=== PATIENT | male | born 1980 ===

== ENCOUNTER 2018-02-23 17:17 | Emergency (ER) | payer OTHER ==
[2018-02-23 17:56] VITALS: BMI 36.1
[2018-02-23 17:58] VITALS: TEMP 98.3
[2018-02-23] MEDS ORDERED: Sodium Chloride 0.9% 1,000 ML IV ONE (18:57)
[2018-02-23 19:27] LABS: BASO # 0.1 K/uL (0.0-0.2); BASO % 1.1 % (0.0-2.0); EOS # 0.3 K/uL (0.0-0.7); EOS % 4.7 % (0.0-4.0); LYMPH % 45.9 % (20.0-40.0); MEAN CELL VOLUME 90.7 fL (80.0-94.0); MEAN CORPUSCULAR HEMOGLOBIN 31.4 pg (27.0-31.0); MEAN CORPUSCULAR HGB CONC 34.6 g/dL (33.0-37.0); MEAN PLATELET VOLUME 8.2 fL (7.2-11.7); MONO # 0.7 K/uL (0.0-0.8); MONO % 10.7 % (0.0-10.0); NEUT # 2.5 K/uL (1.8-7.0); NEUT % 37.6 % (50.0-75.0); NRBC % 0.1 % (0.0-2.0); RBC 4.44 Mil/uL (4.40-5.90); RED CELL DISTRIBUTION WIDTH 12.4 % (11.5-14.5); WHITE BLOOD COUNT 6.6 K/uL (4.8-10.8)
[2018-02-23 19:28] LABS: SQUAMOUS EPITHIAL < 1 /hpf (0-5); URINE BILIRUBIN NEGATIVE (NEGATIVE); URINE BLOOD NEGATIVE (NEGATIVE); URINE CLARITY Clear (Clear); URINE COLOR Yellow (YELLOW); URINE GLUCOSE (UA) NORMAL (Normal); URINE LEUKOCYTE ESTERASE NEG Leu/uL (Negative); URINE PROTEIN NEGATIVE (NEGATIVE)
[2018-02-23 19:44] LABS: ALB/GLOB RATIO 1.3 (1.0-2.1); ALBUMIN 4.6 g/dL (3.5-5.0); ALT/SGPT 23 U/L (21-72); AST/SGOT 59 U/L (17-59); BLOOD UREA NITROGEN 10 mg/dL (9-20); CALCIUM 9.4 mg/dl (8.6-10.4); GFR AFRICAN-AMERICAN > 60; GFR NON-AFRICAN AMERICAN > 60; LIPASE 314 U/L (23-300)
--- NOTE | 2018-02-23 19:53 | CT ---
EXAM: CT Abdomen and Pelvis Without Intravenous Contrast EXAM DATE/TIME: Exam ordered 02/23/2018 6:57 PM CLINICAL HISTORY: 37 years old, male; Pain; Abdominal pain; Flank; Left lower quadrant (llq); Additional info: Abd pain TECHNIQUE: Axial computed tomography images of the abdomen and pelvis without intravenous contrast. All CT scans at this facility use one or more dose reduction techniques, viz.: automated exposure control; ma/kV adjustment per patient size (including targeted exams where dose is matched to indication; i.e. head); or iterative reconstruction technique. Coronal and sagittal reformatted images were created and reviewed. COMPARISON: No relevant prior studies available. FINDINGS: Lung bases: Unremarkable. No mass. No consolidation. Mediastinum: There are small hiatal hernia. ABDOMEN: Liver: The liver measures 23 cm in craniocaudal span. Gallbladder and bile ducts: Unremarkable. No calcified stones. No ductal dilation. Pancreas: Unremarkable. No ductal dilation. Spleen: The spleen measures 13.5 cm in craniocaudal span. Adrenals: Unremarkable. No mass. Kidneys and ureters: Unremarkable. No obstructing stones. No hydronephrosis. Stomach and bowel: There are scattered colonic diverticula. No obstruction. No mucosal thickening.There is very faint stranding of the pericolonic fat surrounding a segment of descending colon in the region of several colonic diverticula. PELVIS: Appendix: No findings to suggest acute appendicitis. Bladder: Unremarkable. No stones. Reproductive: The prostate measures 3.1 by 4.5 x 4.5 cm. ABDOMEN and PELVIS: Intraperitoneal space: Unremarkable. No free air. No significant fluid collection. Bones/joints: Mild degenerative changes noted of the lumbar spine No acute fracture. No dislocation. Soft tissues: There is a 7 mm umbilical hernia containing fat. No evidence of strangulation Vasculature: Unremarkable. No abdominal aortic aneurysm. Lymph nodes: Unremarkable. No enlarged lymph nodes. IMPRESSION: 1. Very faint stranding of pericolonic fat surrounding a segment of descending colon in the region of several colonic diverticula may represent an early mild diverticulitis. No abscess. No perforation. 2. Hepatosplenomegaly. There is evidence of hepatic steatosis. 3. Small hiatal hernia. 4. Date 8 old year-old needs to BE redone out
--- NOTE | 2018-02-23 19:59 | C.PDOC ---
History Of Present Illness 37 year old male, whose PMHx includes Diabetes, presents to the ED for evaluation of left flank pain which has been intermittent for the past 5 days. Patient denies any association of symptoms with movement or exertional activities. Patient states he experienced gross hematuria and passed some blood clots today. Patient has been compliant with his Diabetes medication and has no blood sugar related complaints today. Patient denies previous history of similar symptoms as well as fever, chills, nausea, vomiting, dysuria. Time Seen by Provider: 02/23/18 18:51 Chief Complaint (Nursing): Male Genitourinary History Per: Patient History/Exam Limitations: no limitations Onset/Duration Of Symptoms: Days (5) Current Symptoms Are (Timing): Worse Quality Of Discomfort: "Pain" Associated Symptoms: Urinary Symptoms (gross hematuria ). denies: Fever, Chills , Nausea, Vomiting Additional History Per: Patient Past Medical History Reviewed: Historical Data, Nursing Documentation, Vital Signs Vital Signs: Last Vital Signs Temp 98.3 F 02/23/18 17:57 Pulse 104 H 02/23/18 17:57 Resp 20 02/23/18 17:57 BP 149/89 02/23/18 17:57 Pulse Ox 97 02/23/18 20:17 - Medical History PMH: Diabetes Denies: Chronic Kidney Disease Surgical History: Back Surgery - [facility] Procedures PERIRECTAL INCISION (12/23/14) Family History: States: Unknown Family Hx - Social History Hx Tobacco Use: No Hx Alcohol Use: Yes Hx Substance Use: No - Immunization History Hx Tetanus Toxoid Vaccination: No Hx Influenza Vaccination: No Hx Pneumococcal Vaccination: No Review Of Systems Constitutional: Negative for: Fever, Chills Gastrointestinal: Negative for: Nausea, Vomiting Genitourinary: Positive for: Hematuria. Negative for: Dysuria Musculoskeletal: Positive for: Other (left flank pain ) Physical Exam - Physical Exam Appears: Non-toxic, No Acute Distress Skin: Normal Color, Warm, Dry Head: Atraumatic, Normacephalic Eye(s): bilateral: Normal Inspection Oral Mucosa: Moist Neck: Supple Chest: Symmetrical, No Deformity, No Tenderness Cardiovascular: Rhythm Regular, No Murmur Respiratory: Normal Breath Sounds, No Rales, No Rhonchi, No Wheezing Gastrointestinal/Abdominal: Soft, No Tenderness, No Guarding, No Rebound Back: CVA Tenderness (left-sided ) Extremity: Normal ROM, Capillary Refill (less than 2 seconds ) Neurological/Psych: Oriented x3, Normal Speech, Normal Cognition Gait: Steady ED Course And Treatment - Laboratory Results Result Diagrams: 02/23/18 19:16 02/23/18 19:16 Lab Interpretation: No Acute Changes O2 Sat by Pulse Oximetry: 97 - CT Scan/US CT A/P Other Rad Studies (CT/US): Interpreted By Me, Read By Radiologist, Radiology Report Reviewed CT/US Interpretation: EXAM: CT Abdomen and Pelvis Without Intravenous Contrast. EXAM DATE/TIME: Exam ordered 02/23/2018 6:57 PM. CLINICAL HISTORY: 37 years old, male; Pain; Abdominal pain; Flank; Left lower quadrant (llq); Additional info: Abd pain. TECHNIQUE: Axial computed tomography images of the abdomen and pelvis without intravenous contrast. All CT. scans at this facility use one or more dose reduction techniques, viz.: automated exposure control;. ma/kV adjustment per patient size (including targeted exams where dose is matched to indication; i.e. head); or iterative reconstruction technique. Coronal and sagittal reformatted images were created and reviewed. COMPARISON: No relevant prior studies available. FINDINGS: Lung bases: Unremarkable. No mass. No consolidation. Mediastinum: There are small hiatal hernia. ABDOMEN: Liver: The liver measures 23 cm in craniocaudal span. Gallbladder and bile ducts: Unremarkable. No calcified stones. No ductal dilation. Pancreas: Unremarkable. No ductal dilation. Spleen: The spleen measures 13.5 cm in craniocaudal span. Adrenals: Unremarkable. No mass. Kidneys and ureters: Unremarkable. No obstructing stones. No hydronephrosis. Stomach and bowel: There are scattered colonic diverticula. No obstruction. No mucosal. thickening.There is very faint stranding of the pericolonic fat surrounding a segment of descending. colon in the region of several colonic diverticula. PELVIS: Appendix: No findings to suggest acute appendicitis. Bladder: Unremarkable. No stones. Reproductive: The prostate measures 3.1 by 4.5 x 4.5 cm. ABDOMEN and PELVIS: Intraperitoneal space: Unremarkable. No free air. No significant fluid collection. Bones/joints: Mild degenerative changes noted of the lumbar spine No acute fracture. No. dislocation. Soft tissues: There is a 7 mm umbilical hernia containing fat. No evidence of strangulation. Vasculature: Unremarkable. No abdominal aortic aneurysm. Lymph nodes: Unremarkable. No enlarged lymph nodes. IMPRESSION: 1. Very faint stranding of pericolonic fat surrounding a segment of descending colon in the region of. several colonic diverticula may represent an early mild diverticulitis. No abscess. No perforation. 2. Hepatosplenomegaly. There is evidence of hepatic steatosis. 3. Small hiatal hernia. Progress Note: Bloodwork, urinalysis, CT A/P ordered and reviewed. IV Fluids administered. Reevaluation Time: 20:18 Reassessment Condition: Improved (Patient comofrtable in ED) Disposition Counseled Patient/Family Regarding: Studies Performed, Diagnosis, Need For Followup, Rx Given - Disposition Referrals: Omayra Rainey [Staff Provider] - Disposition: HOME/ ROUTINE Disposition Time: 20:18 Condition: STABLE Prescriptions: Ciprofloxacin [Cipro] 1 tab PO BID #14 tab Instructions: Diverticulitis Forms: [employer] ([place] Islander) Print Language: VIETNAMESE - Clinical Impression Clinical Impression: Diverticulitis - Scribe Statement The provider has reviewed the documentation as recorded by the Scribe (Amanda Guzman) Provider Attestation: All medical record entries made by the Scribe were at my direction and personally dictated by me. I have reviewed the chart and agree that the record accurately reflects my personal performance of the history, physical exam, medical decision making, and the department course for this patient. I have also personally directed, reviewed, and agree with the discharge instructions and disposition.
[2018-02-23 20:30] VITALS: BP 150/84; PULSE 84; RESP 16; O2SAT 99
== END 2018-02-23 20:30 | disposition home or self-care (01) ==
LOC: C.ER 17:17
DX: K57.92 Diverticulitis of intestine, part unspecified, without perforation or abscess without bleeding (principal)
CPT/HCPCS: 74176; 80053; 81001; 83690; 85025; 96360; 99284; J7040

== ENCOUNTER 2019-01-05 23:58 | Inpatient (IN) | payer OTHER ==
[2019-01-05 23:58] VITALS: BMI 36.1
[2019-01-06 01:09] LABS: URINE BILIRUBIN NEGATIVE (NEGATIVE); URINE COLOR BROWN (YELLOW); URINE GLUCOSE (UA) 2+ mg/dL (Normal); URINE LEUKOCYTE ESTERASE NEG Leu/uL (Negative); URINE PROTEIN 2+ mg/dL (NEGATIVE); URINE UROBILINOGEN NORMAL mg/dL (0.2-1.0)
[2019-01-06 01:10] LABS: URINE BLOOD 3+ (NEGATIVE); URINE CLARITY Turbid (Clear)
--- NOTE | 2019-01-06 01:10 | C.PDOC ---
History Of Present Illness 38 year old male present complaining of problem when urinating. Patient states he passed blood slots earlier today and tonight has been unable to pass urine. Denies fever or chills. Patient has Hx of hematuria in the past with negative exam by urologist. Chief Complaint (Nursing): Male Genitourinary History Per: Patient History/Exam Limitations: no limitations Onset/Duration Of Symptoms: Hrs Current Symptoms Are (Timing): Still Present Quality Of Discomfort: Unable To Describe Associated Symptoms: Urinary Symptoms (Passing blood clots, retention). denies: Fever, Chills Recent travel outside of the [place]: No Past Medical History Reviewed: Historical Data, Nursing Documentation, Vital Signs Vital Signs: Last Vital Signs Temp 98.1 F 01/06/19 00:08 Pulse 138 H 01/06/19 00:08 Resp 16 01/06/19 00:08 BP 167/93 H 01/06/19 00:08 Pulse Ox 99 01/06/19 00:08 - Medical History PMH: Diabetes Denies: Chronic Kidney Disease Surgical History: Back Surgery (lower back) - [facility] Procedures PERIRECTAL INCISION (12/23/14) Family History: States: Unknown Family Hx - Social History Hx Tobacco Use: No Hx Alcohol Use: Yes Hx Substance Use: No - Immunization History Hx Tetanus Toxoid Vaccination: No Hx Influenza Vaccination: No Hx Pneumococcal Vaccination: No Review Of Systems Constitutional: Negative for: Fever, Chills Cardiovascular: Negative for: Chest Pain, Palpitations Respiratory: Negative for: Cough, Shortness of Breath Gastrointestinal: Negative for: Nausea, Vomiting Genitourinary: Positive for: Other (Retention, passing clots) Neurological: Negative for: Weakness, Numbness Physical Exam - Physical Exam Appears: Non-toxic Skin: Normal Color, Warm, Dry Head: Atraumatic, Normacephalic Eye(s): bilateral: Normal Inspection Oral Mucosa: Moist Chest: Symmetrical, No Tenderness Cardiovascular: Rhythm Regular Respiratory: Normal Breath Sounds, No Rales, No Rhonchi, No Wheezing Gastrointestinal/Abdominal: Soft, Tenderness (Hypogastric), Distention, No Guarding, No Rebound Back: No CVA Tenderness Neurological/Psych: Oriented x3, Normal Speech ED Course And Treatment - Laboratory Results Result Diagrams: 01/06/19 02:40 O2 Sat by Pulse Oximetry: 99 (Room air) Pulse Ox Interpretation: Normal Progress Note: Barerto catheter inserted with gross hematuria. Disposition Discussed With DrJer: Rigo Campo Doctor Will See Patient In The: Hospital Counseled Patient/Family Regarding: Diagnosis - Disposition Disposition: HOSPITALIZED Disposition Time: 03:17 Condition: STABLE Forms: [facility] (Citizen Of [place]) - POA Present On Arrival: None - Clinical Impression Clinical Impression: Gross hematuria - Scribe Statement The provider has reviewed the documentation as recorded by the Scribe Shon Gonzalez All medical record entries made by the Tessaibe were at my direction and personally dictated by me. I have reviewed the chart and agree that the record accurately reflects my personal performance of the history, physical exam, medical decision making, and the department course for this patient. I have also personally directed, reviewed, and agree with the discharge instructions and disposition.
--- NOTE | 2019-01-06 01:13 | C.PDOC ---
Chief Complaint (Nursing): Male Genitourinary Past Medical History Vital Signs: Last Vital Signs Temp 98.1 F 01/06/19 00:08 Pulse 138 H 01/06/19 00:08 Resp 16 01/06/19 00:08 BP 167/93 H 01/06/19 00:08 Pulse Ox 99 01/06/19 00:08 - Medical History PMH: Diabetes Denies: Chronic Kidney Disease Surgical History: Back Surgery (lower back) - [facility] Procedures PERIRECTAL INCISION (12/23/14) Family History: States: Unknown Family Hx - Social History Hx Tobacco Use: No Hx Alcohol Use: Yes Hx Substance Use: No - Immunization History Hx Tetanus Toxoid Vaccination: No Hx Influenza Vaccination: No Hx Pneumococcal Vaccination: No ED Course And Treatment O2 Sat by Pulse Oximetry: 99 Disposition - Disposition
[2019-01-06 02:45] LABS: BASO # 0.1 K/uL (0.0-0.2); BASO % 1.1 % (0.0-2.0); EOS # 0.1 K/uL (0.0-0.7); EOS % 0.8 % (0.0-4.0); HEMOGLOBIN 12.1 g/dL (12.0-18.0); LYMPH # 1.2 K/uL (1.0-4.3); LYMPH % 19.1 % (20.0-40.0); MEAN CELL VOLUME 93.4 fL (80.0-94.0); MEAN CORPUSCULAR HEMOGLOBIN 31.4 pg (27.0-31.0); MEAN CORPUSCULAR HGB CONC 33.6 g/dL (33.0-37.0); MEAN PLATELET VOLUME 8.3 fL (7.2-11.7); MONO # 0.6 K/uL (0.0-0.8); MONO % 8.5 % (0.0-10.0); NEUT # 4.6 K/uL (1.8-7.0); NEUT % 70.5 % (50.0-75.0); RBC 3.87 Mil/uL (4.40-5.90); RED CELL DISTRIBUTION WIDTH 12.9 % (11.5-14.5); WHITE BLOOD COUNT 6.5 K/uL (4.8-10.8)
[2019-01-06 03:00] LABS: INR 1.2; PROTHROMBIN TIME 12.6 SECONDS (9.7-12.2)
[2019-01-06 03:20] LABS: BLOOD UREA NITROGEN 7 mg/dL (9-20); GFR NON-AFRICAN AMERICAN > 60
[2019-01-06 03:21] LABS: CALCIUM 8.4 mg/dl (8.6-10.4)
[2019-01-06 03:22] LABS: ALB/GLOB RATIO 1.5 (1.0-2.1); ALBUMIN 4.5 g/dL (3.5-5.0); ALT/SGPT 66 U/L (21-72); AST/SGOT 121 U/L (17-59)
[2019-01-06] MEDS ORDERED: Glucagon Recombinant 1 mg Inj IM PRN (04:28)
[2019-01-06] MEDS ORDERED: Dextrose 50% SYRINGE Inj (50 ml) IV PRN (04:28)
--- NOTE | 2019-01-06 04:54 | CP.PCM.HP ---
<ElinorAlexander melol - Last Filed: 01/06/19 05:09> History of Present Illness - History of Present Illness History of Present Illness: PGY-1 History and Physical for Dr. Campo Patient is a 38 year old male with PMHx DM who presents complaining of hematuria which he has been having since Wednesday. Patient made an appointment with his urologist, Dr. Mireles and patient underwent cystoscopy. Patient states that following cystoscopy he was told that there was nothing abnormal and was sent home, He presents to ER as he has continued to have bright red blood in his urine with blood clots. Patient denies feverm flank pain, suprapubic pain. He has had some associated nausea and vomited once. PMHx: DM Surg Hx: I and D perirectal abscess 2014 All: NKA Medications: Metformin 500 mg BID Social: Denies tobacco or drug use. Drinks one half bottle of liquor daily. Family hx: Father - DM. Denies family hx CA. PMD: Dr. Chavez Present on Admission - Present on Admission Any Indicators Present on Admission: No Review of Systems - Constitutional Constitutional: absent: Fever, Weight Loss, Weakness - EENT Eyes: absent: Blurred Vision, Diplopia Nose/Mouth/Throat: absent: Nasal Congestion, Nasal Discharge - Cardiovascular Cardiovascular: absent: Chest Pain, Dyspnea, Palpitations - Respiratory Respiratory: absent: Cough, Dyspnea - Gastrointestinal Gastrointestinal: Nausea, Vomiting. absent: Abdominal Pain, Constipation, Diarrhea - Genitourinary Genitourinary: Difficulty Urinating, Dysuria, Hematuria, Urinary Hesitance, Voiding Freq/Small Amts. absent: Flank Pain, Pyuria, Urinary Incontinence, Urinary Frequency, Urinary Urgency, Hx Renal/Bladder Calculi - Musculoskeletal Musculoskeletal: absent: Back Pain, Neck Pain - Integumentary Integumentary: absent: Pruritus Additional comments: C/o mild skin erythema on adbomen x1 year. Non-pruritic. - Neurological Neurological: absent: Dizziness, Numbness, Tingling - Psychiatric Psychiatric: absent: Anxiety, Depression Past Patient History - Past Medical History & Family History Past Medical History?: No - Past Social History Smoking Status: Never Smoked - CARDIAC Hx Cardiac Disorders: No - PULMONARY Hx Respiratory Disorders: No - NEUROLOGICAL Hx Neurological Disorder: No - HEENT Hx HEENT Problems: No - RENAL Hx Chronic Kidney Disease: No - ENDOCRINE/METABOLIC Hx Endocrine Disorders: Yes Hx Diabetes Mellitus Type 2: Yes - HEMATOLOGICAL/ONCOLOGICAL Hx Blood Disorders: No - INTEGUMENTARY Hx Dermatological Problems: No - MUSCULOSKELETAL/RHEUMATOLOGICAL Hx Musculoskeletal Disorders: No Hx Falls: No - GASTROINTESTINAL Hx Gastrointestinal Disorders: No - GENITOURINARY/GYNECOLOGICAL Hx Genitourinary Disorders: No - PSYCHIATRIC Hx Substance Use: No - SURGICAL HISTORY Hx Surgeries: Yes - ANESTHESIA Hx Anesthesia: Yes Hx Anesthesia Reactions: No Hx Malignant Hyperthermia: No Meds Allergies/Adverse Reactions: Allergies Allergy/AdvReac Type Severity Reaction Status Date / Time No Known Allergies Allergy Verified 01/06/19 00:14 Physical Exam - Constitutional Appears: Non-toxic, No Acute Distress - Head Exam Head Exam: ATRAUMATIC, NORMOCEPHALIC - Eye Exam Eye Exam: EOMI, Normal appearance - ENT Exam ENT Exam: Mucous Membranes Moist - Respiratory Exam Respiratory Exam: Clear to Auscultation Bilateral. absent: Rales, Rhonchi, Wheezes - Cardiovascular Exam Cardiovascular Exam: Tachycardia, +S1, +S2 - GI/Abdominal Exam GI & Abdominal Exam: Normal Bowel Sounds, Soft. absent: Tenderness Additional comments: Central obesity, striae, slight redness/erythema - Extremities Exam Extremities exam: Negative for: pedal edema, tenderness - Neurological Exam Neurological exam: Alert, CN II-XII Intact, Oriented x3 - Psychiatric Exam Psychiatric exam: Normal Affect, Normal Mood - Skin Skin Exam: Dry, Intact Results - Vital Signs Recent Vital Signs: Last Vital Signs Temp 98.0 F 01/06/19 03:51 Pulse 89 01/06/19 03:51 Resp 20 01/06/19 03:51 BP 144/78 01/06/19 03:51 Pulse Ox 98 01/06/19 03:51 - Labs Result Diagrams: 01/06/19 02:40 01/06/19 02:40 Labs: Laboratory Results - last 24 hr 01/06/19 01/06/19 01/06/19 00:50 02:40 02:40 WBC 6.5 RBC 3.87 L Hgb 12.1 Hct 36.1 MCV 93.4 D MCH 31.4 H MCHC 33.6 RDW 12.9 Plt Count 151 MPV 8.3 Neut % (Auto) 70.5 Lymph % (Auto) 19.1 L [place] % (Auto) 8.5 Eos % (Auto) 0.8 Baso % (Auto) 1.1 Neut # (Auto) 4.6 Lymph # (Auto) 1.2 [place] # (Auto) 0.6 Eos # (Auto) 0.1 Baso # (Auto) 0.1 PT INR APTT Sodium 133 Potassium 3.4 L Chloride 96 L Carbon Dioxide 22 Anion Gap 18 BUN 7 L Creatinine 0.4 L Est GFR ( Amer) > 60 Est GFR (Non-Af Amer) > 60 Random Glucose 165 H D Calcium 8.4 L Total Bilirubin 0.9 AST 121 H D ALT 66 Alkaline Phosphatase 129 H D Total Protein 7.5 Albumin 4.5 Globulin 3.0 Albumin/Globulin Ratio 1.5 Urine Color Brown Urine Clarity Turbid Urine pH 6.0 Ur Specific [place] 1.014 Urine Protein 2+ H Urine Glucose (UA) 2+ H Urine Ketones Negative Urine Blood 3+ H Urine Nitrate Negative Urine Bilirubin Negative Urine Urobilinogen Normal Ur Leukocyte Esterase Neg Urine WBC (Auto) 319 H Urine RBC (Auto) 7448 H Blood Type Antibody Screen 01/06/19 01/06/19 02:40 02:40 WBC RBC Hgb Hct MCV MCH MCHC RDW Plt Count MPV Neut % (Auto) Lymph % (Auto) [place] % (Auto) Eos % (Auto) Baso % (Auto) Neut # (Auto) Lymph # (Auto) [place] # (Auto) Eos # (Auto) Baso # (Auto) PT 12.6 H INR 1.2 APTT 35 H Sodium Potassium Chloride Carbon Dioxide Anion Gap BUN Creatinine Est GFR ( Amer) Est GFR (Non-Af Amer) Random Glucose Calcium Total Bilirubin AST ALT Alkaline Phosphatase Total Protein Albumin Globulin Albumin/Globulin Ratio Urine Color Urine Clarity Urine pH Ur Specific [place] Urine Protein Urine Glucose (UA) Urine Ketones Urine Blood Urine Nitrate Urine Bilirubin Urine Urobilinogen Ur Leukocyte Esterase Urine WBC (Auto) Urine RBC (Auto) Blood Type A POSITIVE Antibody Screen Negative Assessment & Plan - Assessment and Plan (Free Text) Assessment: 38 year old male with PMHx DM presents with hematuria and dysuria Hematuria/Dysuria -CT abdomen/pelvis w/o contrast 01/06: Bilateral perinephric fat stranding. Possibly urinary tract infection or abnormal renal function. No evidence of urolithiasis or hydronephrosis. Please correlate with creatinine level and urinalysis. Findings were not present on prior exam. Mild diffuse thickening of the catheterized, underdistended bladder. Hepatomegaly with hepatic steatosis. -Urology consulted, Dr. Mireles - f/u recs --NPO for possible procedure --Day team please obtain cystoscopy report from procedure at [facility] -PT/PTT unremarkable -Barreto in place, draining bright red bloody urine Abx: -Rocephin 1gm IV daily ETOH abuse -Librium 25mg PO Q8 LAVERN -Ativan 0.5 mg IV prn DM -Metformin held while NPO -Accuchecks -Hypoglycemic protocol PPx -DVT ppx contraindicated 2/2 gross hematuria -NPO Assessment and plan discussed with Dr. Alber White, PGY-1 <Rigo Campo P - Last Filed: 01/06/19 07:26> Results - Vital Signs Recent Vital Signs: Last Vital Signs Temp 98.7 F 01/06/19 05:14 Pulse 99 H 01/06/19 05:14 Resp 20 01/06/19 05:14 BP 129/83 01/06/19 05:14 Pulse Ox 97 01/06/19 05:14 - Labs Result Diagrams: 01/06/19 02:40 01/06/19 02:40 Labs: Laboratory Results - last 24 hr 01/06/19 01/06/19 01/06/19 00:50 02:40 02:40 WBC 6.5 RBC 3.87 L Hgb 12.1 Hct 36.1 MCV 93.4 D MCH 31.4 H MCHC 33.6 RDW 12.9 Plt Count 151 MPV 8.3 Neut % (Auto) 70.5 Lymph % (Auto) 19.1 L [place] % (Auto) 8.5 Eos % (Auto) 0.8 Baso % (Auto) 1.1 Neut # (Auto) 4.6 Lymph # (Auto) 1.2 [place] # (Auto) 0.6 Eos # (Auto) 0.1 Baso # (Auto) 0.1 PT INR APTT Sodium 133 Potassium 3.4 L Chloride 96 L Carbon Dioxide 22 Anion Gap 18 BUN 7 L Creatinine 0.4 L Est GFR ( Amer) > 60 Est GFR (Non-Af Amer) > 60 POC Glucose (mg/dL) Random Glucose 165 H D Calcium 8.4 L Total Bilirubin 0.9 AST 121 H D ALT 66 Alkaline Phosphatase 129 H D Total Protein 7.5 Albumin 4.5 Globulin 3.0 Albumin/Globulin Ratio 1.5 Urine Color Brown Urine Clarity Turbid Urine pH 6.0 Ur Specific [place] 1.014 Urine Protein 2+ H Urine Glucose (UA) 2+ H Urine Ketones Negative Urine Blood 3+ H Urine Nitrate Negative Urine Bilirubin Negative Urine Urobilinogen Normal Ur Leukocyte Esterase Neg Urine WBC (Auto) 319 H Urine RBC (Auto) 7448 H Blood Type Antibody Screen 01/06/19 01/06/19 01/06/19 02:40 02:40 06:30 WBC RBC Hgb Hct MCV MCH MCHC RDW Plt Count MPV Neut % (Auto) Lymph % (Auto) [place] % (Auto) Eos % (Auto) Baso % (Auto) Neut # (Auto) Lymph # (Auto) [place] # (Auto) Eos # (Auto) Baso # (Auto) PT 12.6 H INR 1.2 APTT 35 H Sodium Potassium Chloride Carbon Dioxide Anion Gap BUN Creatinine Est GFR ( Amer) Est GFR (Non-Af Amer) POC Glucose (mg/dL) 132 H Random Glucose Calcium Total Bilirubin AST ALT Alkaline Phosphatase Total Protein Albumin Globulin Albumin/Globulin Ratio Urine Color Urine Clarity Urine pH Ur Specific [place] Urine Protein Urine Glucose (UA) Urine Ketones Urine Blood Urine Nitrate Urine Bilirubin Urine Urobilinogen Ur Leukocyte Esterase Urine WBC (Auto) Urine RBC (Auto) Blood Type A POSITIVE Antibody Screen Negative Attending/Attestation - Attestation I have personally seen and examined this patient.: Yes I have fully participated in the care of the patient.: Yes I have reviewed all pertinent clinical information: Yes Notes (Text): 01/06/19 07:23 Hematuria and urinary retention, started on cbi, h/o recent cystoscopy a week prior without any lesion as per the patient Stranding in the perinephric fat Alcoholism and tendency to withdrawal, with some tremors now. Plan Continue bladder irrigation Iv rocephin Urology consult CIWA, thiamine, mvt, fa, scheduled librium and prn iv ativan Counselled about alcohol cessation See orders for detail.
--- NOTE | 2019-01-06 07:10 | CP.PCM.PN ---
<Chu Fan - Last Filed: 01/06/19 17:19> Subjective - Date & Time of Evaluation Date of Evaluation: 01/06/19 Time of Evaluation: 07:10 - Subjective Subjective: PGY-1 Medicine Progress Note for Dr. Guzman Patient seen and examined at bedside this AM. No acute overnight events reported. Patient noted to be actively withdrawing: tremors noted, diaphoretic. No auditory or visual hallucinations noted, no headaches or dizziness, no chest pain or palpitations. 12 pt ROS reviewed and otherwise negative. Patient states his last drink was at 7pm last night. Patient states that his first incident of hematuria occurred in December 2017. He came to [facility] ER and had a CT abd/pelvis which was negative. Patient was discharged but continued to have sporadic hematuria for next 3 months. He made an appointment with Dr Mireles in March 2018 who performed a cystoscopy which was negative. Patient was symptom free until 3 weeks ago when he went to [facility] for hematuria; cystoscopy was negative. Patient had on and off symptoms until Wednesday when his hematuria worsened and he went back to his urologist who performed a cystoscopy which was negative. Patient works for [employer]. 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 He wears a mask and gloves to work but does not wear protective garment. He states the chemicals are irritant to skin. Objective - Vital Signs/Intake and Output Vital Signs (last 24 hours): Temp Pulse Resp BP Pulse Ox 98.7 F 99 H 20 129/83 97 01/06/19 05:14 01/06/19 05:14 01/06/19 05:14 01/06/19 05:14 01/06/19 05:14 Intake and Output: 01/06/19 01/06/19 06:59 18:59 Output Total 1000 Balance -1000 - Medications Medications: Current Medications Chlordiazepoxide (Librium) 25 mg PO Q8 PETE Last Admin: 01/06/19 06:36 Dose: 25 mg Dextrose (Dextrose 50% Inj) 0 ml IV STAT PRN; Protocol PRN Reason: Hypoglycemia Protocol Dextrose (Glutose 15) 0 gm PO ONCE PRN; Protocol PRN Reason: Hypoglycemia Protocol Glucagon (Glucagen Diagnostic Kit) 0 mg IM STAT PRN; Protocol PRN Reason: Hypoglycemia Protocol Dextrose (Dextrose 5% In Water 1000 Ml) 1,000 mls @ 0 mls/hr IV .Q0M PRN; Protocol PRN Reason: Hypoglycemia Protocol Ceftriaxone Sodium 1 gm/ (Sodium Chloride) 100 mls @ 100 mls/hr IVPB DAILY PETE; Protocol Folic Acid 1 mg/ Thiamine HCl 100 mg/ Multivitamins/Vitamin C 10 ml/ Dextrose 1,011.2 mls @ 100 mls/hr IV .Q10H7M PETE Lorazepam (Ativan) 1 mg IVP Q4 PETE - Labs Labs: 01/06/19 02:40 01/06/19 02:40 PT 12.6 SECONDS (9.7-12.2) H 01/06/19 02:40 INR 1.2 01/06/19 02:40 APTT 35 SECONDS (21-34) H 01/06/19 02:40 - Constitutional Appears: In Acute Distress (actively withdrawing) - Head Exam Head Exam: ATRAUMATIC, NORMAL INSPECTION, NORMOCEPHALIC - Eye Exam Eye Exam: EOMI, Normal appearance Pupil Exam: NORMAL ACCOMODATION - ENT Exam ENT Exam: Mucous Membranes Moist, Normal Exam - Neck Exam Neck Exam: Full ROM, Normal Inspection - Respiratory Exam Respiratory Exam: Clear to Ausculation Bilateral, NORMAL BREATHING PATTERN. absent: Accessory Muscle Use, Rales, Rhonchi, Wheezes, Respiratory Distress, Stridor - GI/Abdominal Exam GI & Abdominal Exam: Soft, Normal Bowel Sounds. absent: Distended, Firm, Guarding, Rigid, Tenderness, Rebound - Extremities Exam Extremities Exam: Full ROM, Normal Capillary Refill, Normal Inspection. absent: Calf Tenderness, Pedal Edema - Back Exam Back Exam: NORMAL INSPECTION - Neurological Exam Neurological Exam: Alert, Awake, Oriented x3 Additional comments: tremors noted on PE - Skin Skin Exam: Diaphoretic, Intact, Normal Color Assessment and Plan - Assessment and Plan (Free Text) Assessment: 38 year old male with PMHx of DM presenting with recurrent microscopic hematuria. Plan: Microscopic hematuria -urine from reid noted to be strawberry-colored -minimal clotting noted -Hb stable, 12.1 -RPR, hepatitis panel, HIV negave -f/u GN/GC -f/u urine cytology -Urology (Dr. Mireles) on case -attempted to call physician but did not respond, left message with service -CT abdomen/pelvis without contrast: hepatomegaly with fatty infiltration. No evidence of urinary calculus or urinary tract obstruction. -Reached out to [facility] about obtaining cystoscopy report -f/u faxed report -Rocephin 1gm IV daily Alcohol withdrawal Hx of alcohol abuse -Ativan 2mg q4h pete 01/06-01/11 -Ativan 1mg q4 prn afterwards -Folic acid/thiamine/MV DM -home meds held -f/u A1C -ISS high dose -accuchecks achs -hypoglycemic protocol PPx, Diet, Disposition -DVT ppx: scds -GI ppx: not indicated at this time -Diet: clear liquid diet Case discussed with Dr. Thomas Fan DO, PGY-1 <Brennan Guzman - Last Filed: 01/06/19 19:32> Objective - Vital Signs/Intake and Output Vital Signs (last 24 hours): Temp Pulse Resp BP Pulse Ox 98.5 F 88 20 147/96 H 97 01/06/19 16:47 01/06/19 16:47 01/06/19 16:47 01/06/19 16:47 01/06/19 16:47 Intake and Output: 01/06/19 01/07/19 18:59 06:59 Intake Total 9000 Output Total 9610 Balance -610 - Medications Medications: Current Medications Dextrose (Dextrose 50% Inj) 0 ml IV STAT PRN; Protocol PRN Reason: Hypoglycemia Protocol Dextrose (Glutose 15) 0 gm PO ONCE PRN; Protocol PRN Reason: Hypoglycemia Protocol Glucagon (Glucagen Diagnostic Kit) 0 mg IM STAT PRN; Protocol PRN Reason: Hypoglycemia Protocol Dextrose (Dextrose 5% In Water 1000 Ml) 1,000 mls @ 0 mls/hr IV .Q0M PRN; Protocol PRN Reason: Hypoglycemia Protocol Ceftriaxone Sodium 1 gm/ (Sodium Chloride) 100 mls @ 100 mls/hr IVPB DAILY PETE; Protocol Last Admin: 01/06/19 10:22 Dose: 100 mls/hr Folic Acid 1 mg/ Thiamine HCl 100 mg/ Multivitamins/Vitamin C 10 ml/ Dextrose 1,011.2 mls @ 100 mls/hr IVPB DAILY PETE Last Admin: 01/06/19 08:57 Dose: 100 mls/hr Multivitamins/Vitamin C 10 ml/Thiamine HCl 100 mg/ Folic Acid 1 mg/ Sodium Chloride 1,011.2 mls @ 150 mls/hr IV .Q6H45M ONE Stop: 01/07/19 16:44 Insulin Human Regular (Novolin R) 0 unit SC ACHS PETE; Protocol Last Admin: 01/06/19 17:10 Dose: 2 unit Lorazepam (Ativan) 1 mg IVP Q4 PRN PRN Reason: Agitation Lorazepam (Ativan) 2 mg PO Q4 PETE; Taper Stop: 01/11/19 09:14 Last Admin: 01/06/19 16:51 Dose: 2 mg - Labs Labs: 01/06/19 02:40 01/06/19 02:40 PT 12.6 SECONDS (9.7-12.2) H 01/06/19 02:40 INR 1.2 01/06/19 02:40 APTT 35 SECONDS (21-34) H 01/06/19 02:40 Attending/Attestation - Attestation I have personally seen and examined this patient.: Yes I have fully participated in the care of the patient.: Yes I have reviewed all pertinent clinical information, including history, physical exam and plan: Yes Notes (Text): 01/06/19 19:31 Patient was seen and examined at 9:15 AM Care of this patient was gone over in detail with resident Dr. Fan. Also F/U Urine Cytology Brennan Guzman D.O.
[2019-01-06] MEDS: Folic Acid 1 MG, Thiamine 100 MG, Multivitamin (MVI) 10 ML in Dextrose 5% In Water 1,00... IVPB SCH (08:57)
[2019-01-06] MEDS: Magnesium Sulfate 1 gm in D5W 1 GM/100 ML BAG IVPB SCH ×3 (10:33→12:38)
[2019-01-06] MEDS: (Novolin R) Insulin Human Regular 100 units/ml vial SC SCH ×3 (11:20→22:16)
[2019-01-06 12:16] LABS: HEPATITIS B SURFACE AG Negative (NEGATIVE)
[2019-01-06 12:21] LABS: HEPATITIS A IGM NEGATIVE (NEGATIVE); HEPATITIS B CORE AB NEGATIVE (NEGATIVE)
[2019-01-06 12:33] LABS: HEPATITIS C ANTIBODY NEGATIVE (NEGATIVE)
--- NOTE | 2019-01-06 13:39 | CT ---
Date of service: 01/06/2019 PROCEDURE: CT Abdomen and Pelvis without intravenous contrast HISTORY: gross hematuria/ lower abd pain COMPARISON: 02/23/2018 TECHNIQUE: Without contrast.. Contrast dose: 0 Radiation dose: Total exam DLP = 1093.51 mGy-cm. This CT exam was performed using one or more of the following dose reduction techniques: Automated exposure control, adjustment of the mA and/or kV according to patient size, and/or use of iterative reconstruction technique. FINDINGS: LOWER THORAX: Unremarkable. LIVER: Hepatomegaly. The liver measures approximately 24 cm craniocaudal. Diffusely diminished hepatic attenuation consistent with fatty infiltration. Smooth contour. No mass. No biliary ductal dilatation. GALLBLADDER AND BILE DUCTS: Unremarkable. PANCREAS: Unremarkable. No gross lesion or ductal dilatation. SPLEEN: Unremarkable. ADRENALS: Unremarkable. No mass. KIDNEYS AND URETERS: Unremarkable. No hydronephrosis. No solid mass. VASCULATURE: Unremarkable. No aortic aneurysm. No aortic atherosclerotic calcification or mural plaque present. BOWEL: Unremarkable. No obstruction. No gross mural thickening. APPENDIX: Unremarkable. Normal appendix. PERITONEUM: Unremarkable. No free fluid. No free air. LYMPH NODES: Unremarkable. No enlarged lymph nodes. BLADDER: Nondistended. Barreto catheter present. REPRODUCTIVE: Normal prostate BONES: No acute fracture. OTHER FINDINGS: None. IMPRESSION: Hepatomegaly with fatty infiltration. No evidence of urinary calculus or urinary tract obstruction. No additional abnormality.
[2019-01-06] MEDS ORDERED: Propofol 10 mg/ml Inj (20 ML) ONE (19:55)
[2019-01-06] MEDS: HYDROmorphone 0.5 mg/0.5 ml ISec IVP PRN ×2 (21:01→21:18)
[2019-01-06] MEDS ORDERED: HYDROmorphone 0.5 mg/0.5 ml ISec ONE (21:05)
[2019-01-07 00:40] VITALS: RESP 20; TEMP 97.9
[2019-01-07] MEDS: (Novolin R) Insulin Human Regular 100 units/ml vial SC SCH ×2 (07:43→11:48)
[2019-01-07 08:10] VITALS: BP 143/97; PULSE 100; O2SAT 99
[2019-01-07 08:15] LABS: BASO % 0.6 % (0.0-2.0); EOS # 0.4 K/uL (0.0-0.7); EOS % 6.4 % (0.0-4.0); HEMOGLOBIN 12.8 g/dL (12.0-18.0); LYMPH # 1.1 K/uL (1.0-4.3); LYMPH % 16.7 % (20.0-40.0); MEAN CELL VOLUME 94.4 fL (80.0-94.0); MEAN CORPUSCULAR HEMOGLOBIN 31.3 pg (27.0-31.0); MEAN CORPUSCULAR HGB CONC 33.2 g/dL (33.0-37.0); MEAN PLATELET VOLUME 8.7 fL (7.2-11.7); MONO # 0.5 K/uL (0.0-0.8); MONO % 7.7 % (0.0-10.0); NEUT # 4.3 K/uL (1.8-7.0); NEUT % 68.6 % (50.0-75.0); RBC 4.1 Mil/uL (4.40-5.90); RED CELL DISTRIBUTION WIDTH 12.8 % (11.5-14.5); WHITE BLOOD COUNT 6.3 K/uL (4.8-10.8)
[2019-01-07 08:26] LABS: ALB/GLOB RATIO 1.4 (1.0-2.1); ALBUMIN 4.3 g/dL (3.5-5.0); ALT/SGPT 56 U/L (21-72); AST/SGOT 117 U/L (17-59); BLOOD UREA NITROGEN 4 mg/dL (9-20); CALCIUM 8.5 mg/dl (8.6-10.4); GFR NON-AFRICAN AMERICAN > 60; HDL CHOLESTEROL 47 mg/dL (30-70)
[2019-01-07 08:35] LABS: LDL CHOLESTEROL 143 mg/dL (0-129)
--- NOTE | 2019-01-07 09:04 | CP.PCM.PN ---
Subjective - Date & Time of Evaluation Date of Evaluation: 01/07/19 Time of Evaluation: 09:02 - Subjective Subjective: UROLOGY POD #1 urine clear pt has no pain at cath site. Plan to convert to leg bag,disch today and follow up in office wednesday to remove reid, Rx given to daughter Objective - Vital Signs/Intake and Output Vital Signs (last 24 hours): Temp Pulse Resp BP Pulse Ox 97.9 F 100 H 20 143/97 H 99 01/07/19 08:09 01/07/19 08:09 01/07/19 08:09 01/07/19 08:09 01/07/19 08:09 Intake and Output: 01/07/19 01/07/19 06:59 18:59 Intake Total 2550 Output Total 3350 Balance -800 - Medications Medications: Current Medications Dextrose (Dextrose 50% Inj) 0 ml IV STAT PRN; Protocol PRN Reason: Hypoglycemia Protocol Dextrose (Glutose 15) 0 gm PO ONCE PRN; Protocol PRN Reason: Hypoglycemia Protocol Glucagon (Glucagen Diagnostic Kit) 0 mg IM STAT PRN; Protocol PRN Reason: Hypoglycemia Protocol Dextrose (Dextrose 5% In Water 1000 Ml) 1,000 mls @ 0 mls/hr IV .Q0M PRN; Protocol PRN Reason: Hypoglycemia Protocol Ceftriaxone Sodium 1 gm/ (Sodium Chloride) 100 mls @ 100 mls/hr IVPB DAILY L[facility]ERN; Protocol Last Admin: 01/06/19 10:22 Dose: 100 mls/hr Folic Acid 1 mg/ Thiamine HCl 100 mg/ Multivitamins/Vitamin C 10 ml/ Dextrose 1,011.2 mls @ 100 mls/hr IVPB DAILY L[facility]ERN Last Admin: 01/06/19 08:57 Dose: 100 mls/hr Multivitamins/Vitamin C 10 ml/Thiamine HCl 100 mg/ Folic Acid 1 mg/ Sodium Chloride 1,011.2 mls @ 150 mls/hr IV .Q6H45M ONE Stop: 01/07/19 16:44 Insulin Human Regular (Novolin R) 0 unit SC ACHS L[facility]ERN; Protocol Last Admin: 01/07/19 07:43 Dose: Not Given Lorazepam (Ativan) 1 mg IVP Q4 PRN PRN Reason: Agitation Last Admin: 01/06/19 22:10 Dose: 1 mg Lorazepam (Ativan) 2 mg PO Q4 LAVERN; Taper Stop: 01/11/19 09:14 Last Admin: 01/07/19 08:18 Dose: 2 mg - Labs Labs: 01/07/19 08:00 01/07/19 08:00 PT 12.6 SECONDS (9.7-12.2) H 01/06/19 02:40 INR 1.2 01/06/19 02:40 APTT 35 SECONDS (21-34) H 01/06/19 02:40
[2019-01-07] MEDS ORDERED: Multivitamin (MVI) 10 ML, Thiamine 100 MG, Folic Acid 1 MG in Sodium Chloride 0.9% 1,00... IV ONE (10:00)
[2019-01-07] MEDS: Folic Acid 1 MG, Thiamine 100 MG, Multivitamin (MVI) 10 ML in Dextrose 5% In Water 1,00... IVPB SCH (10:30)
--- NOTE | 2019-01-07 10:47 | CP.PCM.DIS ---
Provider - Provider Date of Admission: 01/06/19 03:17 Attending physician: Rigo Campo MD Consults: 01/06/19 04:24 Urology Consult Routine Comment: Consulting Provider: Coty Mireles Consulting Physician: Coty Mireles Reason for Consult: Hematuria s/p cystoscopy Hospital Course - Lab Results Lab Results: Most Recent Lab Values WBC 6.3 K/uL (4.8-10.8) 01/07/19 08:00 RBC 4.10 Mil/uL (4.40-5.90) L 01/07/19 08:00 Hgb 12.8 g/dL (12.0-18.0) 01/07/19 08:00 Hct 38.6 % (35.0-51.0) 01/07/19 08:00 MCV 94.4 fL (80.0-94.0) H 01/07/19 08:00 MCH 31.3 pg (27.0-31.0) H 01/07/19 08:00 MCHC 33.2 g/dL (33.0-37.0) 01/07/19 08:00 RDW 12.8 % (11.5-14.5) 01/07/19 08:00 Plt Count 161 K/uL (130-400) 01/07/19 08:00 MPV 8.7 fL (7.2-11.7) 01/07/19 08:00 Neut % (Auto) 68.6 % (50.0-75.0) 01/07/19 08:00 Lymph % (Auto) 16.7 % (20.0-40.0) L 01/07/19 08:00 [place] % (Auto) 7.7 % (0.0-10.0) 01/07/19 08:00 Eos % (Auto) 6.4 % (0.0-4.0) H 01/07/19 08:00 Baso % (Auto) 0.6 % (0.0-2.0) 01/07/19 08:00 Neut # (Auto) 4.3 K/uL (1.8-7.0) 01/07/19 08:00 Lymph # (Auto) 1.1 K/uL (1.0-4.3) 01/07/19 08:00 [place] # (Auto) 0.5 K/uL (0.0-0.8) 01/07/19 08:00 Eos # (Auto) 0.4 K/uL (0.0-0.7) 01/07/19 08:00 Baso # (Auto) 0.0 K/uL (0.0-0.2) 01/07/19 08:00 PT 12.6 SECONDS (9.7-12.2) H 01/06/19 02:40 INR 1.2 01/06/19 02:40 APTT 35 SECONDS (21-34) H 01/06/19 02:40 Sodium 137 mmol/L (132-148) 01/07/19 08:00 Potassium 3.6 mmol/L (3.6-5.2) 01/07/19 08:00 Chloride 98 mmol/L (98-107) 01/07/19 08:00 Carbon Dioxide 30 mmol/L (22-30) 01/07/19 08:00 Anion Gap 13 (10-20) 01/07/19 08:00 BUN 4 mg/dL (9-20) L 01/07/19 08:00 Creatinine 0.5 mg/dL (0.8-1.5) L 01/07/19 08:00 Est GFR ( Amer) > 60 01/07/19 08:00 Est GFR (Non-Af Amer) > 60 01/07/19 08:00 POC Glucose (mg/dL) 143 mg/dL (65-110) H 01/06/19 22:15 Random Glucose 120 mg/dL (75-110) H D 01/07/19 08:00 Calcium 8.5 mg/dl (8.6-10.4) L 01/07/19 08:00 Phosphorus 3.8 mg/dL (2.5-4.5) 01/07/19 08:00 Magnesium 1.8 mg/dL (1.6-2.3) 01/07/19 08:00 Total Bilirubin 1.7 mg/dL (0.2-1.3) H 01/07/19 08:00 AST 117 U/L (17-59) H 01/07/19 08:00 ALT 56 U/L (21-72) 01/07/19 08:00 Alkaline Phosphatase 134 U/L (38-126) H 01/07/19 08:00 Total Protein 7.5 g/dL (6.3-8.3) 01/07/19 08:00 Albumin 4.3 g/dL (3.5-5.0) 01/07/19 08:00 Globulin 3.1 gm/dL (2.2-3.9) 01/07/19 08:00 Albumin/Globulin Ratio 1.4 (1.0-2.1) 01/07/19 08:00 Triglycerides 176 mg/dL (0-149) H 01/07/19 08:00 Cholesterol 236 mg/dL (0-199) H 01/07/19 08:00 LDL Cholesterol Direct 143 mg/dL (0-129) H 01/07/19 08:00 HDL Cholesterol 47 mg/dL (30-70) 01/07/19 08:00 Free T4 1.27 ng/dL (0.78-2.19) 01/07/19 08:00 TSH 3rd Generation 3.97 mIU/L (0.46-4.68) 01/07/19 08:00 Urine Color Brown (YELLOW) 01/06/19 00:50 Urine Clarity Turbid (Clear) 01/06/19 00:50 Urine pH 6.0 (5.0-8.0) 01/06/19 00:50 Ur Specific [place] 1.014 (1.003-1.030) 01/06/19 00:50 Urine Protein 2+ mg/dL (NEGATIVE) H 01/06/19 00:50 Urine Glucose (UA) 2+ mg/dL (Normal) H 01/06/19 00:50 Urine Ketones Negative mg/dL (NEGATIVE) 01/06/19 00:50 Urine Blood 3+ (NEGATIVE) H 01/06/19 00:50 Urine Nitrate Negative (NEGATIVE) 01/06/19 00:50 Urine Bilirubin Negative (NEGATIVE) 01/06/19 00:50 Urine Urobilinogen Normal mg/dL (0.2-1.0) 01/06/19 00:50 Ur Leukocyte Esterase Neg Gurdeep/uL (Negative) 01/06/19 00:50 Urine WBC (Auto) 319 /hpf (0-5) H 01/06/19 00:50 Urine RBC (Auto) 7448 /hpf (0-3) H 01/06/19 00:50 RPR Nonreactive (NONREACTIVE) 01/06/19 11:19 Hepatitis A IgM Ab Negative (NEGATIVE) 01/06/19 11:19 Hep Bs Antigen Negative (NEGATIVE) 01/06/19 11:19 Hep B Core IgM Ab Negative (NEGATIVE) 01/06/19 11:19 Hepatitis C Antibody Negative (NEGATIVE) 01/06/19 11:19 HIV 1&2 Antibody Screen Negative (NEGATIVE) 01/06/19 11:19 Blood Type A POSITIVE 01/06/19 02:40 Antibody Screen Negative 01/06/19 02:40 Discharge Exam - Head Exam Head Exam: ATRAUMATIC, NORMAL INSPECTION, NORMOCEPHALIC Discharge Plan - Follow Up Plan Condition: STABLE Disposition: HOME/ ROUTINE
--- NOTE | 2019-01-07 10:58 | CP.PCM.PN ---
<Caryl Garcia - Last Filed: 01/07/19 10:58> Objective - Vital Signs/Intake and Output Vital Signs (last 24 hours): Temp Pulse Resp BP Pulse Ox 97.9 F 100 H 20 143/97 H 99 01/07/19 08:09 01/07/19 08:09 01/07/19 08:09 01/07/19 08:09 01/07/19 08:09 Intake and Output: 01/07/19 01/07/19 06:59 18:59 Intake Total 2550 Output Total 3350 Balance -800 - Medications Medications: Current Medications Dextrose (Dextrose 50% Inj) 0 ml IV STAT PRN; Protocol PRN Reason: Hypoglycemia Protocol Dextrose (Glutose 15) 0 gm PO ONCE PRN; Protocol PRN Reason: Hypoglycemia Protocol Folic Acid (Folic Acid) 1 mg PO DAILY LAVERN Glucagon (Glucagen Diagnostic Kit) 0 mg IM STAT PRN; Protocol PRN Reason: Hypoglycemia Protocol Dextrose (Dextrose 5% In Water 1000 Ml) 1,000 mls @ 0 mls/hr IV .Q0M PRN; Protocol PRN Reason: Hypoglycemia Protocol Ceftriaxone Sodium 1 gm/ (Sodium Chloride) 100 mls @ 100 mls/hr IVPB DAILY [facility]; Protocol Last Admin: 01/07/19 10:29 Dose: 100 mls/hr Multivitamins/Vitamin C 10 ml/Thiamine HCl 100 mg/ Folic Acid 1 mg/ Sodium Chloride 1,011.2 mls @ 150 mls/hr IV .Q6H45M ONE Stop: 01/07/19 16:44 Last Admin: 01/07/19 10:51 Dose: 150 mls/hr Sodium Chloride (Sodium Chloride 0.9%) 1,000 mls @ 150 mls/hr IV .Q6H40M [facility] Insulin Human Regular (Novolin R) 0 unit SC ACHS L[facility]ERN; Protocol Last Admin: 01/07/19 07:43 Dose: Not Given Lorazepam (Ativan) 1 mg IVP Q4 PRN PRN Reason: Agitation Last Admin: 01/06/19 22:10 Dose: 1 mg Lorazepam (Ativan) 2 mg PO Q4 LAVERN; Taper Stop: 01/11/19 09:14 Last Admin: 01/07/19 08:18 Dose: 2 mg Multivitamins (Hexavitamin) 1 tab PO DAILY LAVERN Thiamine HCl (Vitamin B1 Tab) 100 mg PO DAILY LAVERN - Labs Labs: 01/07/19 08:00 01/07/19 08:00 PT 12.6 SECONDS (9.7-12.2) H 01/06/19 02:40 INR 1.2 01/06/19 02:40 APTT 35 SECONDS (21-34) H 01/06/19 02:40 <GuzmanBrennan Rosalba - Last Filed: 01/07/19 11:51> Subjective - Date & Time of Evaluation Date of Evaluation: 01/07/19 Time of Evaluation: 11:15 - Subjective Subjective: Hospitalist Progress Note Patient was seen and examined at 11:15 AM 01/07/19 Upon FULL ROS: NO abdominal pain NO N/V/D/C NO chest pain NO palpitations NO lightheadedness/dizziness NO issues with urination NO headache NO new changes in vision NO new change in hearing NO numbness and tingling NO other complaints upon RULL ROS Exam: General: AAOX3, NAD HEENT: NCA, EOMI, PERRLA, NO pharyngeal erythema/exudate, NO lymphadenopathy, NO thyromegaly Cardio: NS1 and NS2, NO M/R/G Resp: CTA B/L, NO R/R/W GI: BSx4, ND, NT, Soft, NO guarding/rebound tenderness, Left inguinal surgical site shows NO evidence of wound dehiscence/fluctuation/cellulitis and NO surrounding masses palpated and NO bruising noted Ext: Pulses are strong and equal, Capillary Refill is 2 seconds, NO Edema Neuro: CN II through XII are grossly intact Assessment: 1).Microscopic hematuria Status: Acute NO blood clots noted on Reid tubing or bag Urine is straw colored in Reid tubing and yellow in bag with NO gross blood noted 2). Alcohol withdrawal with Hx Alcohol Abuse Status: Chronic No signs of withdrawl on exam today 3). DM 2 Status: Chronic Patient stated that he had enough of his Metformin at home. Lisinopril Rx provided Did not start patient on Statin due to the elevated LFTs Seen by Urology Dr. Mireles and has been cleared for discharge with Reid in place. Dr. Mireles has provided patient's daughter with appointment date and time which is this Wednesday01/09/19 at 1 PM. Spoke with Nurse Simmons and she will teach patient Reid Care and provide reid leg bag. Patient may be discharged after he has been educated on how to empty leg reid bag and how to properly maintain until his appointment with Urology on Wednesday01/09/19. The following instructions were explained to patient and a copy will need to be provided to him upon discharge: 1). Follow up with Urologist Dr. Mireles as instructed by him on Wednesday01/09/19 at 1 PM. You stated that your daughter has a prescription that was provided to her by Dr. Mireles with appointment information on it. Through Dr. Mireles' office you must have continued work up for the blood in your urine. Please make sure that you continue to wear the correct protective equipment at work and if your e quipment is defective you must notify your supervisor electronic testing. 2). Please do NOT remove the urinary catheter. Please empty out the urinary bag as you have been shown at the time of your discharge. 3). You stated that you had enough of your home medication of Metformin 500 mg. Please take 1 tablet by mouth with breakfast and 1 tablet with dinner as you have been doing. 4). Please have the following prescription filled at your pharmacy on your way home from the hospital and use as directed: Lisinopril 10 mg, 1 tablet by mouth once a day at 8 AM, Dispense #[id number] 5). As you have been counseled during your hospitalization, you must follow up with [facility] to help you to stop drinking alcohol. Please call [phone] for help in your area. 6). Please make sure to receive regular maintenance examinations with your Primary Care Physician. 7). Please take care and be well. Brennan Guzman D.O. Objective - Vital Signs/Intake and Output Vital Signs (last 24 hours): Temp Pulse Resp BP Pulse Ox 97.9 F 100 H 20 143/97 H 99 01/07/19 08:09 01/07/19 08:09 01/07/19 08:09 01/07/19 08:09 01/07/19 08:09 Intake and Output: 01/07/19 01/07/19 06:59 18:59 Intake Total 2550 Output Total 3350 Balance -800 - Medications Medications: Current Medications Dextrose (Dextrose 50% Inj) 0 ml IV STAT PRN; Protocol PRN Reason: Hypoglycemia Protocol Dextrose (Glutose 15) 0 gm PO ONCE PRN; Protocol PRN Reason: Hypoglycemia Protocol Folic Acid (Folic Acid) 1 mg PO DAILY [facility] Glucagon (Glucagen Diagnostic Kit) 0 mg IM STAT PRN; Protocol PRN Reason: Hypoglycemia Protocol Dextrose (Dextrose 5% In Water 1000 Ml) 1,000 mls @ 0 mls/hr IV .Q0M PRN; Protocol PRN Reason: Hypoglycemia Protocol Ceftriaxone Sodium 1 gm/ (Sodium Chloride) 100 mls @ 100 mls/hr IVPB DAILY [facility]; Protocol Last Admin: 01/07/19 10:29 Dose: 100 mls/hr Multivitamins/Vitamin C 10 ml/Thiamine HCl 100 mg/ Folic Acid 1 mg/ Sodium Chloride 1,011.2 mls @ 150 mls/hr IV .Q6H45M ONE Stop: 01/07/19 16:44 Last Admin: 01/07/19 10:51 Dose: 150 mls/hr Sodium Chloride (Sodium Chloride 0.9%) 1,000 mls @ 150 mls/hr IV .Q6H40M [facility] Insulin Human Regular (Novolin R) 0 unit SC ACHS [facility]; Protocol Last Admin: 01/07/19 07:43 Dose: Not Given Lorazepam (Ativan) 1 mg IVP Q4 PRN PRN Reason: Agitation Last Admin: 01/06/19 22:10 Dose: 1 mg Lorazepam (Ativan) 2 mg PO Q4 [facility]; Taper Stop: 01/11/19 09:14 Last Admin: 01/07/19 11:25 Dose: Not Given Multivitamins (Hexavitamin) 1 tab PO DAILY [facility] Thiamine HCl (Vitamin B1 Tab) 100 mg PO DAILY L[facility]ERN - Labs Labs: 01/07/19 08:00 01/07/19 08:00 PT 12.6 SECONDS (9.7-12.2) H 01/06/19 02:40 INR 1.2 01/06/19 02:40 APTT 35 SECONDS (21-34) H 01/06/19 02:40
--- NOTE | 2019-01-07 11:48 | CP.PCM.DIS ---
<Caryl Garcia - Last Filed: 01/07/19 18:59> Provider - Provider Date of Admission: 01/06/19 03:17 Attending physician: Rigo Campo MD Consults: 01/06/19 04:24 Urology Consult Routine Comment: Consulting Provider: Coty Mireles Consulting Physician: Coty Mireles Reason for Consult: Hematuria s/p cystoscopy Time Spent in preparation of Discharge (in minutes): 35 Diagnosis - Discharge Diagnosis (1) Gross hematuria Status: Resolved (2) ETOH abuse Status: Chronic Hospital Course - Lab Results Lab Results: Most Recent Lab Values WBC 6.3 K/uL (4.8-10.8) 01/07/19 08:00 RBC 4.10 Mil/uL (4.40-5.90) L 01/07/19 08:00 Hgb 12.8 g/dL (12.0-18.0) 01/07/19 08:00 Hct 38.6 % (35.0-51.0) 01/07/19 08:00 MCV 94.4 fL (80.0-94.0) H 01/07/19 08:00 MCH 31.3 pg (27.0-31.0) H 01/07/19 08:00 MCHC 33.2 g/dL (33.0-37.0) 01/07/19 08:00 RDW 12.8 % (11.5-14.5) 01/07/19 08:00 Plt Count 161 K/uL (130-400) 01/07/19 08:00 MPV 8.7 fL (7.2-11.7) 01/07/19 08:00 Neut % (Auto) 68.6 % (50.0-75.0) 01/07/19 08:00 Lymph % (Auto) 16.7 % (20.0-40.0) L 01/07/19 08:00 [place] % (Auto) 7.7 % (0.0-10.0) 01/07/19 08:00 Eos % (Auto) 6.4 % (0.0-4.0) H 01/07/19 08:00 Baso % (Auto) 0.6 % (0.0-2.0) 01/07/19 08:00 Neut # (Auto) 4.3 K/uL (1.8-7.0) 01/07/19 08:00 Lymph # (Auto) 1.1 K/uL (1.0-4.3) 01/07/19 08:00 [place] # (Auto) 0.5 K/uL (0.0-0.8) 01/07/19 08:00 Eos # (Auto) 0.4 K/uL (0.0-0.7) 01/07/19 08:00 Baso # (Auto) 0.0 K/uL (0.0-0.2) 01/07/19 08:00 PT 12.6 SECONDS (9.7-12.2) H 01/06/19 02:40 INR 1.2 01/06/19 02:40 APTT 35 SECONDS (21-34) H 01/06/19 02:40 Sodium 137 mmol/L (132-148) 01/07/19 08:00 Potassium 3.6 mmol/L (3.6-5.2) 01/07/19 08:00 Chloride 98 mmol/L (98-107) 01/07/19 08:00 Carbon Dioxide 30 mmol/L (22-30) 01/07/19 08:00 Anion Gap 13 (10-20) 01/07/19 08:00 BUN 4 mg/dL (9-20) L 01/07/19 08:00 Creatinine 0.5 mg/dL (0.8-1.5) L 01/07/19 08:00 Est GFR ( Amer) > 60 01/07/19 08:00 Est GFR (Non-Af Amer) > 60 01/07/19 08:00 POC Glucose (mg/dL) 148 mg/dL (65-110) H 01/07/19 11:21 Random Glucose 120 mg/dL (75-110) H D 01/07/19 08:00 Calcium 8.5 mg/dl (8.6-10.4) L 01/07/19 08:00 Phosphorus 3.8 mg/dL (2.5-4.5) 01/07/19 08:00 Magnesium 1.8 mg/dL (1.6-2.3) 01/07/19 08:00 Total Bilirubin 1.7 mg/dL (0.2-1.3) H 01/07/19 08:00 AST 117 U/L (17-59) H 01/07/19 08:00 ALT 56 U/L (21-72) 01/07/19 08:00 Alkaline Phosphatase 134 U/L (38-126) H 01/07/19 08:00 Total Protein 7.5 g/dL (6.3-8.3) 01/07/19 08:00 Albumin 4.3 g/dL (3.5-5.0) 01/07/19 08:00 Globulin 3.1 gm/dL (2.2-3.9) 01/07/19 08:00 Albumin/Globulin Ratio 1.4 (1.0-2.1) 01/07/19 08:00 Triglycerides 176 mg/dL (0-149) H 01/07/19 08:00 Cholesterol 236 mg/dL (0-199) H 01/07/19 08:00 LDL Cholesterol Direct 143 mg/dL (0-129) H 01/07/19 08:00 HDL Cholesterol 47 mg/dL (30-70) 01/07/19 08:00 Free T4 1.27 ng/dL (0.78-2.19) 01/07/19 08:00 TSH 3rd Generation 3.97 mIU/L (0.46-4.68) 01/07/19 08:00 Urine Color Brown (YELLOW) 01/06/19 00:50 Urine Clarity Turbid (Clear) 01/06/19 00:50 Urine pH 6.0 (5.0-8.0) 01/06/19 00:50 Ur Specific [place] 1.014 (1.003-1.030) 01/06/19 00:50 Urine Protein 2+ mg/dL (NEGATIVE) H 01/06/19 00:50 Urine Glucose (UA) 2+ mg/dL (Normal) H 01/06/19 00:50 Urine Ketones Negative mg/dL (NEGATIVE) 01/06/19 00:50 Urine Blood 3+ (NEGATIVE) H 01/06/19 00:50 Urine Nitrate Negative (NEGATIVE) 01/06/19 00:50 Urine Bilirubin Negative (NEGATIVE) 01/06/19 00:50 Urine Urobilinogen Normal mg/dL (0.2-1.0) 01/06/19 00:50 Ur Leukocyte Esterase Neg Gurdeep/uL (Negative) 01/06/19 00:50 Urine WBC (Auto) 319 /hpf (0-5) H 01/06/19 00:50 Urine RBC (Auto) 7448 /hpf (0-3) H 01/06/19 00:50 RPR Nonreactive (NONREACTIVE) 01/06/19 11:19 Hepatitis A IgM Ab Negative (NEGATIVE) 01/06/19 11:19 Hep Bs Antigen Negative (NEGATIVE) 01/06/19 11:19 Hep B Core IgM Ab Negative (NEGATIVE) 01/06/19 11:19 Hepatitis C Antibody Negative (NEGATIVE) 01/06/19 11:19 HIV 1&2 Antibody Screen Negative (NEGATIVE) 01/06/19 11:19 Blood Type A POSITIVE 01/06/19 02:40 Antibody Screen Negative 01/06/19 02:40 - Hospital Course Hospital Course: Mr. Mary is a 38 year old male with a PMHx of Diabetes and EtOH abuse who was admitted for hematuria. Urology was consulted on the case for a cystoscopy. Cystoscopy preformed on the day of admisison. Patient urine was clear POD #1 of cystoscopy. CBI converted to a leg bag. Patient to follow up with Urology on Wednesday. Patient was given instructions by nurse The importance of this follow up was reinforced to the patient. The importance of addressing the need for better protection at his employment site was also discussed. Patient also asked to follow up with PMD. Patient states he understand with the plan and is agreeable. 1).Microscopic hematuria Status: Acute NO blood clots noted on Reid tubing or bag Urine is straw colored in Reid tubing and yellow in bag with NO gross blood noted 2). Alcohol withdrawal with Hx Alcohol Abuse Status: Chronic No signs of withdrawal on exam today 3). DM 2 Status: Chronic Patient stated that he had enough of his Metformin at home. Lisinopril Rx provided Did not start patient on Statin due to the elevated LFTs Seen by Urology Dr. Mireles and has been cleared for discharge with Reid in place. Dr. Mireles has provided patient's daughter with appointment date and time which is this Wednesday01/09/19 at 1 PM. Spoke with Nurse Iris and she will teach patient Reid Care and provide reid leg bag. Patient may be discharged after he has been educated on how to empty leg reid bag and how to properly maintain until his appointment with Urology on Wednesday01/09/19. The following instructions were explained to patient and a copy will need to be provided to him upon discharge: 1). Follow up with Urologist Dr. Mireles as instructed by him on Wednesday01/09/19 at 1 PM. You stated that your daughter has a prescription that was provided to her by Dr. Mireles with appointment information on it. Through Dr. Mireles' office you must have continued work up for the blood in your urine. Please make sure that you continue to wear the correct protective equipment at work and if your equipment is defective you must notify your court supervisor. 2). Please do NOT remove the urinary catheter. Please empty out the urinary bag as you have been shown at the time of your discharge. 3). You stated that you had enough of your home medication of Metformin 500 mg. Please take 1 tablet by mouth with breakfast and 1 tablet with dinner as you have been doing. 4). Please have the following prescription filled at your pharmacy on your way home from the hospital and use as directed: Lisinopril 10 mg, 1 tablet by mouth once a day at 8 AM, Dispense #30 5). As you have been counseled during your hospitalization, you must follow up with Alcohol Anonymous to help you to stop drinking alcohol. Please call [phone] for help in your area. 6). Please make sure to receive regular maintenance examinations with your Primary Care Physician. 7). Please take care and be well. Discharge Exam - Head Exam Head Exam: ATRAUMATIC, NORMAL INSPECTION, NORMOCEPHALIC - Eye Exam Eye Exam: EOMI, Normal appearance. absent: Scleral icterus - ENT Exam ENT Exam: Mucous Membranes Moist - Respiratory Exam Respiratory Exam: Clear to PA & Lateral. absent: Accessory Muscle Use, Wheezes - Cardiovascular Exam Cardiovascular Exam: RRR, +S1, +S2 - GI/Abdominal Exam GI & Abdominal Exam: Normal Bowel Sounds, Soft. absent: Tenderness - Exam Exam: NORMAL INSPECTION - Extremities Exam Extremities exam: normal capillary refill, pedal pulses present - Neurological Exam Neurological exam: Alert, Oriented x3 - Psychiatric Exam Psychiatric exam: Normal Affect, Normal Mood - Skin Skin Exam: Dry, Intact, Normal Color, Warm Discharge Plan - Discharge Medications Prescriptions: Lisinopril [Prinivil] 10 mg PO DAILY #30 tablet - Follow Up Plan Condition: STABLE Disposition: HOME/ ROUTINE Instructions: Blood in the Urine (Hematuria) in Adults Additional Instructions: The following instructions were explained to patient and a copy will need to be provided to him upon discharge: 1). Follow up with Urologist Dr. Mireles as instructed by him on Wednesday01/09/19 at 1 PM. You stated that your daughter has a prescription that was provided to her by Dr. Mireles with appointment information on it. Through Dr. Mireles' office you must have continued work up for the blood in your urine. Please make sure that you continue to wear the correct protective equipment at work and if your equipment is defective you must notify your court supervisor. 2). Please do NOT remove the urinary catheter. Please empty out the urinary bag as you have been shown at the time of your discharge. 3). You stated that you had enough of your home medication of Metformin 500 mg. Please take 1 tablet by mouth with breakfast and 1 tablet with dinner as you have been doing. 4). Please have the following prescription filled at your pharmacy on your way home from the hospital and use as directed: Lisinopril 10 mg, 1 tablet by mouth once a day at 8 AM, Dispense #30 5). As you have been counseled during your hospitalization, you must follow up with [employer] to help you to stop drinking alcohol. Please call [phone] for help in your area. 6). Please make sure to receive regular maintenance examinations with your Primary Care Physician. 7). Please take care and be well. Brennan Guzman D.O. Referrals: Coty Mireles MD [Medical Doctor] - Omayra Rainey [Staff Provider] - <Brennan Guzman - Last Filed: 01/08/19 20:13> Provider - Provider Date of Admission: 01/06/19 03:17 Attending physician: Rigo Campo MD Consults: 01/06/19 04:24 Urology Consult Routine Comment: Consulting Provider: Coty Mireles Consulting Physician: Coty Mireles Reason for Consult: Hematuria s/p cystoscopy Hospital Course - Lab Results Lab Results: Micro Results 01/06/19 00:50 Urine Random Urine Culture - Final No Growth (<1,000 CFU/ML) Most Recent Lab Values WBC 6.3 K/uL (4.8-10.8) 01/07/19 08:00 RBC 4.10 Mil/uL (4.40-5.90) L 01/07/19 08:00 Hgb 12.8 g/dL (12.0-18.0) 01/07/19 08:00 Hct 38.6 % (35.0-51.0) 01/07/19 08:00 MCV 94.4 fL (80.0-94.0) H 01/07/19 08:00 MCH 31.3 pg (27.0-31.0) H 01/07/19 08:00 MCHC 33.2 g/dL (33.0-37.0) 01/07/19 08:00 RDW 12.8 % (11.5-14.5) 01/07/19 08:00 Plt Count 161 K/uL (130-400) 01/07/19 08:00 MPV 8.7 fL (7.2-11.7) 01/07/19 08:00 Neut % (Auto) 68.6 % (50.0-75.0) 01/07/19 08:00 Lymph % (Auto) 16.7 % (20.0-40.0) L 01/07/19 08:00 [place] % (Auto) 7.7 % (0.0-10.0) 01/07/19 08:00 Eos % (Auto) 6.4 % (0.0-4.0) H 01/07/19 08:00 Baso % (Auto) 0.6 % (0.0-2.0) 01/07/19 08:00 Neut # (Auto) 4.3 K/uL (1.8-7.0) 01/07/19 08:00 Lymph # (Auto) 1.1 K/uL (1.0-4.3) 01/07/19 08:00 [place] # (Auto) 0.5 K/uL (0.0-0.8) 01/07/19 08:00 Eos # (Auto) 0.4 K/uL (0.0-0.7) 01/07/19 08:00 Baso # (Auto) 0.0 K/uL (0.0-0.2) 01/07/19 08:00 PT 12.6 SECONDS (9.7-12.2) H 01/06/19 02:40 INR 1.2 01/06/19 02:40 APTT 35 SECONDS (21-34) H 01/06/19 02:40 Sodium 137 mmol/L (132-148) 01/07/19 08:00 Potassium 3.6 mmol/L (3.6-5.2) 01/07/19 08:00 Chloride 98 mmol/L (98-107) 01/07/19 08:00 Carbon Dioxide 30 mmol/L (22-30) 01/07/19 08:00 Anion Gap 13 (10-20) 01/07/19 08:00 BUN 4 mg/dL (9-20) L 01/07/19 08:00 Creatinine 0.5 mg/dL (0.8-1.5) L 01/07/19 08:00 Est GFR ( Amer) > 60 01/07/19 08:00 Est GFR (Non-Af Amer) > 60 01/07/19 08:00 POC Glucose (mg/dL) 148 mg/dL (65-110) H 01/07/19 11:21 Random Glucose 120 mg/dL (75-110) H D 01/07/19 08:00 Hemoglobin A1c 6.9 % (4.2-6.5) H 01/07/19 08:00 Calcium 8.5 mg/dl (8.6-10.4) L 01/07/19 08:00 Phosphorus 3.8 mg/dL (2.5-4.5) 01/07/19 08:00 Magnesium 1.8 mg/dL (1.6-2.3) 01/07/19 08:00 Total Bilirubin 1.7 mg/dL (0.2-1.3) H 01/07/19 08:00 AST 117 U/L (17-59) H 01/07/19 08:00 ALT 56 U/L (21-72) 01/07/19 08:00 Alkaline Phosphatase 134 U/L (38-126) H 01/07/19 08:00 Total Protein 7.5 g/dL (6.3-8.3) 01/07/19 08:00 Albumin 4.3 g/dL (3.5-5.0) 01/07/19 08:00 Globulin 3.1 gm/dL (2.2-3.9) 01/07/19 08:00 Albumin/Globulin Ratio 1.4 (1.0-2.1) 01/07/19 08:00 Triglycerides 176 mg/dL (0-149) H 01/07/19 08:00 Cholesterol 236 mg/dL (0-199) H 01/07/19 08:00 LDL Cholesterol Direct 143 mg/dL (0-129) H 01/07/19 08:00 HDL Cholesterol 47 mg/dL (30-70) 01/07/19 08:00 Free T4 1.27 ng/dL (0.78-2.19) 01/07/19 08:00 TSH 3rd Generation 3.97 mIU/L (0.46-4.68) 01/07/19 08:00 Urine Color Brown (YELLOW) 01/06/19 00:50 Urine Clarity Turbid (Clear) 01/06/19 00:50 Urine pH 6.0 (5.0-8.0) 01/06/19 00:50 Ur Specific [place] 1.014 (1.003-1.030) 01/06/19 00:50 Urine Protein 2+ mg/dL (NEGATIVE) H 01/06/19 00:50 Urine Glucose (UA) 2+ mg/dL (Normal) H 01/06/19 00:50 Urine Ketones Negative mg/dL (NEGATIVE) 01/06/19 00:50 Urine Blood 3+ (NEGATIVE) H 01/06/19 00:50 Urine Nitrate Negative (NEGATIVE) 01/06/19 00:50 Urine Bilirubin Negative (NEGATIVE) 01/06/19 00:50 Urine Urobilinogen Normal mg/dL (0.2-1.0) 01/06/19 00:50 Ur Leukocyte Esterase Neg Gurdeep/uL (Negative) 01/06/19 00:50 Urine WBC (Auto) 319 /hpf (0-5) H 01/06/19 00:50 Urine RBC (Auto) 7448 /hpf (0-3) H 01/06/19 00:50 RPR Nonreactive (NONREACTIVE) 01/06/19 11:19 T.pallidum Ab (FTA-ABS) Nonreactive (Nonreactive) 01/06/19 11:19 Hepatitis A IgM Ab Negative (NEGATIVE) 01/06/19 11:19 Hep Bs Antigen Negative (NEGATIVE) 01/06/19 11:19 Hep B Core IgM Ab Negative (NEGATIVE) 01/06/19 11:19 Hepatitis C Antibody Negative (NEGATIVE) 01/06/19 11:19 HIV 1&2 Antibody Screen Negative (NEGATIVE) 01/06/19 11:19 Blood Type A POSITIVE 01/06/19 02:40 Antibody Screen Negative 01/06/19 02:40 Attending/Attestation - Attestation I have personally seen and examined this patient.: Yes I have fully participated in the care of the patient.: Yes I have reviewed all pertinent clinical information, including history, physical exam and plan: Yes Notes (Text): 01/08/19 20:13 This is a late entry. Discharge instructions and care of this patient were gone over with resident Dr. Garcia. Brennan Guzman D.O.
[2019-01-07] MEDS ORDERED: Sodium Chloride 0.9% 1,000 ML IV SCH (17:00)
[2019-01-08] MEDS ORDERED: Multiple Vitamins Tab PO SCH (10:00)
--- NOTE | 2019-01-09 06:36 | OP ---
PROCEDURE DATE: 01/06/2019 PREOPERATIVE DIAGNOSIS: Gross hematuria. POSTOPERATIVE DIAGNOSIS: Gross hematuria. PROCEDURE PERFORMED: Cystoscopy with transurethral fulguration. SURGEON: Coty Mireles MD DESCRIPTION OF PROCEDURE: The patient was placed on the operating room table in a dorsal lithotomy position, given general anesthesia. The area of the groin was draped and prepped. Using a continuous flow resectoscope, I entered into the bladder atraumatically. There was no blood clots noted at this time. I then under camera direction took multiple photos of the bladder wall, ureteral orifices, prostatic urethra and the pendulous urethra. The only area that was somewhat irritable was the prostatic urethra which within the past week or so. I had taken him again for the same reason and cauterized that area just in the vicinity of the bladder neck. I looked for ureteral orifices they were effluxing clear urine. The collapse of the bladder looked at the dome, I looked as far as I could in all quadrants of the bladder. There was no evidence of any unusual lesions. No active bleeders, certainly no clots in the bladder. Again at the level of the prostatic urethra appeared to be the only place that showed some extra hyperemic area which I then cauterized. Again, I took multiple pictures from the verumontanum to the distal tip of the urethra and did not see any unusual lesions or active bleeding. The pictures are the documentation. They are part of the record. Once this was done, I removed the resectoscope. I inserted a #22 three-way Barreto catheter, CBI was begun. The urine was crystal clear. The patient was taken from the operating room in good condition. Coty Mireles MD
== END 2019-01-07 14:10 | disposition home or self-care (01) | DRG 696 ==
LOC: C.ER 23:58 → C.5S 01-06 03:17
PROVIDERS: ADMIT Internal Medicine; ATTEND Internal Medicine
PROC: 0T5D8ZZ Destruction of Urethra, Via Natural or Artificial Opening Endoscopic (ICD-10-PCS; principal; 2019-01-06 19:45)
DX: R31.0 Gross hematuria (principal); F10.239 Alcohol dependence with withdrawal, unspecified; E11.9 Type 2 diabetes mellitus without complications; R16.0 Hepatomegaly, not elsewhere classified; K76.0 Fatty (change of) liver, not elsewhere classified; Z79.84 Long term (current) use of oral hypoglycemic drugs

== ENCOUNTER 2019-01-08 09:15 | Emergency (ER) | payer OTHER ==
[2019-01-08 09:15] VITALS: BMI 36.1
[2019-01-08 09:27] VITALS: TEMP 98.1
--- NOTE | 2019-01-08 10:25 | C.PDOC ---
History Of Present Illness 38 y/o male, who was seen here yesterday and discharged with a reid, comes in complaining of lower abdominal pain and difficulty urinating. Patient reports the pain worsens with bowel movement. States he last drained leg bag around 2am today and now it has 20cc urine. He denies any fever, nausea, vomiting, diarrhea, back pain, or other symptoms. Time Seen by Provider: 01/08/19 09:38 Chief Complaint (Nursing): Male Genitourinary History Per: Patient History/Exam Limitations: no limitations Onset/Duration Of Symptoms: Days Current Symptoms Are (Timing): Still Present Past Medical History Reviewed: Historical Data, Nursing Documentation, Vital Signs Vital Signs: Last Vital Signs Temp 98.1 F 01/08/19 09:23 Pulse 101 H 01/08/19 09:23 Resp 21 01/08/19 09:23 BP 145/96 H 01/08/19 09:23 Pulse Ox 100 01/08/19 09:23 - Medical History PMH: Diabetes Denies: Chronic Kidney Disease Surgical History: Back Surgery - [facility] PERIRECTAL INCISION (12/23/14) Family History: States: No Known Family Hx - Social History Hx Tobacco Use: No Hx Alcohol Use: Yes Hx Substance Use: No - Immunization History Hx Tetanus Toxoid Vaccination: No Hx Influenza Vaccination: No Hx Pneumococcal Vaccination: No Review Of Systems Constitutional: Negative for: Fever, Chills Gastrointestinal: Positive for: Abdominal Pain. Negative for: Nausea, Vomiting, Diarrhea Musculoskeletal: Negative for: Back Pain Physical Exam - Physical Exam Appears: Non-toxic, No Acute Distress Skin: Warm, Dry Head: Atraumatic, Normacephalic Eye(s): bilateral: PERRL, EOMI Oral Mucosa: Moist Neck: Supple Cardiovascular: Rhythm Regular, No Murmur Respiratory: No Decreased Breath Sounds, No Rales, No Rhonchi, No Wheezing Gastrointestinal/Abdominal: Soft, Tenderness (mild suprapubic tenderness) Back: No CVA Tenderness Male Genital: Other (reid catheter in place) Extremity: No Pedal Edema, No Swelling Extremity: Bilateral: Normal ROM Neurological/Psych: Oriented x3, Normal Speech, Normal Cognition, Normal Motor ED Course And Treatment O2 Sat by Pulse Oximetry: 100 (RA) Pulse Ox Interpretation: Normal - Other Rad Abdomen XR X-Ray: Read By Radiologist Interpretation: IMPRESSION: Mild constipation is noted. Medical Decision Making Medical Decision Making: Plan: --Abdomen XR 1209 pt's xray shows mild constipation. pt reid now draining easily. has mild suprapubic tenderness on exam, no rebound or guarding. no n/v/d, ni fever or chills. pt has appt with urologist tomorrow; pt will be discharge with miralax, urology and pmd f/u, Disposition Counseled Patient/Family Regarding: Studies Performed, Diagnosis, Need For Followup, Rx Given - Disposition Referrals: Coty Mireles MD [Medical Doctor] - Kade Adkins MD [Medical Doctor] - Disposition: HOME/ ROUTINE Disposition Time: 12:10 Condition: GOOD Additional Instructions: Follow up with Dr Mireles (urologist) tomorrow and with Dr Charlton in the next 1- 2 days. Increase fluid intake. Tylenol for pain. Take Miralax once a day until you have soft bowel movements. Return to ER for any worse symptoms. medication sent to [facility] on [address] Prescriptions: Polyethylene Glycol 3350 [Miralax] 17 gm PO DAILY #1 bottle Instructions: Constipation, Adult (DC), How to Care for Your Reid Catheter, Male Forms: [facility] ([place]), General Discharge Instructions - Clinical Impression Clinical Impression: Reid catheter problem, Constipation - PA / CLINICAL SALES CONSULTANT / Resident Statement MD/DO has reviewed & agrees with the documentation as recorded. - Scribe Statement The provider has reviewed the documentation as recorded by the Scribe Saida Hensley All medical record entries made by the Aldo were at my direction and personally dictated by me. I have reviewed the chart and agree that the record accurately reflects my personal performance of the history, physical exam, medical decision making, and the department course for this patient. I have also personally directed, reviewed, and agree with the discharge instructions and disposition.
--- NOTE | 2019-01-08 10:51 | RAD ---
Date of service: 01/08/2019 HISTORY: ab pain, no bm few days COMPARISON: None available. FINDINGS: BOWEL: Mild constipation is noted. No obstruction. No free air. BONES: Normal. OTHER FINDINGS: None. IMPRESSION: Mild constipation is noted.
[2019-01-08 12:02] VITALS: BP 134/90; PULSE 85; RESP 18
[2019-01-08 12:10] VITALS: O2SAT 100
== END 2019-01-08 12:24 | disposition home or self-care (01) ==
LOC: C.ER 09:15
DX: T83.9XXA Unspecified complication of genitourinary prosthetic device, implant and graft, initial encounter (principal); Y84.9 Medical procedure, unspecified as the cause of abnormal reaction of the patient, or of later complication, without mention of misadventure at the time of the procedure; K59.00 Constipation, unspecified